=== PATIENT | male | born 1975 | race African-American/Black ===

== ENCOUNTER 2016-03-23 09:03 | Emergency (ER) | payer SELFPAY ==
--- NOTE | 2016-03-23 09:36 | ERRECORD ---
[facility] EMERGENCY RECORD HPI ABDOMINAL PAIN (09:15 WMEI) CHIEF COMPLAINT: Patient presents for evaluation of abdominal pain. HISTORIAN: History provided by patient, states epigastric pain with diarrhea for 2 days resolved now needs note for work. LOCATION MALE: Symptoms are localized, most severe in the epigastrium. TIME COURSE: Gradual onset of symptoms. ASSOCIATED WITH: No associated symptoms. RELIEVED BY: Patient's condition relieved by nothing. EXACERBATED BY: Patient's condition exacerbated by nothing. ROS (09:16 WMEI) CONSTITUTIONAL: Negative constitutional review of systems, Historian denies chills, denies fever. EYES: Historian denies eye pain, denies eye discharge. ENT: Historian denies rhinorrhea, denies sore throat, reports stridor. CARDIOVASCULAR: Historian denies chest pain, no radiation. RESPIRATORY: Historian denies cough, denies shortness of breath. GI: Historian reports abdominal pain, reports diarrhea. GENITOURINARY MALE: Historian denies dysuria, denies urinary frequency. MUSCULOSKELETAL: Historian denies back pain, denies joint stiffness. SKIN: Historian denies skin changes, denies skin lesions. NEUROLOGIC: Historian denies headache, denies mental status changes. PSYCHIATRIC: Historian denies alcohol abuse, denies drug abuse. PAST MEDICAL HISTORY (09:13 ASA) MEDICAL HISTORY: Flu vaccine not up to date, Pneumococcal vaccine not up to date, Past medical history includes history of hypertension, non compliant with meds. MALE SURGICAL HISTORY: Surgical history of orthopedic surgery, left knee. PSYCHIATRIC HISTORY: No previous psychiatric history, Psychiatric history includes. SOCIAL HISTORY: Patient drinks socially, twice a month, Patient denies drug use, Patient has no smoking history, Patient drinks socially, once a month, Patient denies drug use, Patient has no smoking history. KNOWN ALLERGIES No Known Drug Allergies CURRENT MEDICATIONS (09:14 ASA) None &a-1R&a+25V*p+0X*d7481R*c202B*c15G*c2P*p-0X&a-25V&a+1R Name: Neel Juan JR : 1975 M41 MedRec: [id number] AcctNum: [id number] Prepared: Omayra Mar 23, 2016 17:07 by Interface Page 1 of 2 pMD [facility] EMERGENCY RECORD VITAL SIGNS (09:10 [facility]) VITAL SIGNS: BP: 124/105, Pulse: 108, Resp: 16, Temp: 97.3 (Oral), Pain: 0, O2 sat: 98, Time: 03/23/2016 09:10. PHYSICAL EXAM (09:17 WMEI) CONSTITUTIONAL: Vital Signs Reviewed, Patient appears pain free, Patient alert and oriented to person, place and time. HEAD: Head exam included findings of head atraumatic, normocephalic. EYES: Conjunctiva normal, Sclera normal. ENT: Ear exam normal, Nose exam normal, Pharynx exam normal. NECK: Neck exam included findings of normal range of motion, Trachea midline. RESPIRATORY CHEST: Breath sounds clear, Chest exam included findings of chest movement symmetrical. CARDIOVASCULAR: Cardiovascular exam included findings of heart rate regular rate and rhythm, Heart sounds normal. ABDOMEN MALE: Abdominal exam included findings of abdomen nontender, Liver normal, Spleen normal. BACK: no tenderness, no costovertebral angle tenderness. UPPER EXTREMITY: Upper extremity exam included findings of inspection normal, Range of motion normal, Motor strength normal. LOWER EXTREMITY: Lower extremity exam included findings of inspection normal, Range of motion normal, Motor strength normal. NEURO: [place] coma scale 15, Neuro exam findings include patient oriented to person, place and time, Speech normal, Gait normal. SKIN: Skin exam included findings of skin warm, dry, and normal in color. LYMPHATIC: Lymphatic exam normal. PSYCHIATRIC: Psychiatric exam included findings of patient oriented to person place and time, Normal affect, Judgment normal, Insight normal. PROBLEM LIST No recorded problems DIAGNOSIS (09:19 WMEI) FINAL: PRIMARY: Acute Gastroenteritis - presumed infectious. PRESCRIPTION No recorded prescriptions DISPOSITION PATIENT: Disposition Type: Discharge, Disposition: *Discharge Home. (09:19 WMEI) Patient left the department. (09:28 LSMI) Ndiaye: [facility]=DEV Frankel, June LSMI=BLANCA Durand Leah WMEI=DO Ashby William &a-1R&a+25V*p+0X*a2533T*c202B*c15G*c2P*p-0X&a-25V&a+1R Name: Neel Juan JR : 1975 11 MedRec: [id number] AcctNum: [id number] Prepared: Omayra Mar 23, 2016 17:07 by Interface Page 2 of 2 pMD MTDD
--- NOTE | 2016-03-23 09:42 | PICIS ---
[facility] EMERGENCY RECORD TRIAGE (09:11 ASA) TRIAGE NOTES: pt stats that he is no longer having pain. needs a drMendoza noted to return to work. (09:11 ASAH) PATIENT: NAME: Neel Juan JR, AGE: 41, GENDER: male, : [facility] 1975, TIME OF GREET: Omayra Mar 23, 2016 09:03, PREFERRED LANGUAGE: [place], ETHNICITY: Not or , ECODE BILLING MAP: [place], SSN: [id number], Zip Code: [address], KG WEIGHT: 68.04, PHONE: , , , PERSON ID: [id number], PAYMENT: [employer] Self Pay, PCP: none. (09:11 ASAH) COMPLAINT: Abdominal Pain. (09:11 ASAH) ADMISSION: URGENCY: 4 Non Urgent, ADMISSION SOURCE: Home, TRANSPORT: CAR, BED: ER -02. (09:11 ASAH) PAIN: No complaint of pain. (09:13 ASAH) IMMUNIZATIONS: Flu vaccine not up to date, Tetanus not up to date, Pneumococcal vaccine not up to date. (09:13 ASAH) SIRS SCORING: Heart Rate 55-109 (0), Temp range 96.8-101.1 (0), respiratory rate 12-24 (0), Mental status altered: yes (1), Infection or Suspected Infection: No. (09:13 ASAH) TRIAGE SCREENING: Patient denies suicidal ideation, Patient denies presence of domestic violence. (09:13 ASAH) PROVIDERS: TRIAGE NURSE: Pat Frankel RN. (09:11 ASAH) VITAL SIGNS: BP 124/105, Pulse 108, Resp 16, Temp 97.3, (Oral), Pain 0, O2 Sat 98, Time 03/23/2016 09:10. (09:10 ASAH) KNOWN ALLERGIES No Known Drug Allergies CURRENT MEDICATIONS (:14 ASAH) None VITAL SIGNS (09:10 ASA) VITAL SIGNS: BP: 124/105, Pulse: 108, Resp: 16, Temp: 97.3 (Oral), Pain: 0, O2 sat: 98, Time: 03/23/2016 09:10. NURSING ASSESSMENT: ABDOMEN (09:14 [facility]) CONSTITUTIONAL: Patient arrives ambulatory, Gait steady, History obtained from patient, Patient appears comfortable, Patient cooperative, Patient alert, Oriented to person, place and time, Skin warm, Skin dry, Skin normal in color, Patient complains of absominal pain. ABDOMEN: Abdomen assessment findings include abdomen symmetrical, Abdomen soft, non-tender. SAFETY: Side rails up, Cart/Stretcher in lowest position, Call light within reach, Hospital ID band on. NURSING PROCEDURE: DISCHARGE NOTE (09:25 LSMI) DISCHARGE: Patient discharged to home, ambulating without assistance, driving self, accompanied by other family member, Summary &a-1R&a+25V*p+0X*d0999M*c202B*c15G*c2P*p-0X&a-25V&a+1R Name: Neel Juan JR : 1975 M41 MedRec: [id number] AcctNum: [id number] Prepared: Omayra Mar 23, 2016 17:13 by Interface Page 1 of [address] [facility] EMERGENCY RECORD of Care printed/ provided, Transition record given to patient, Discharge instructions given to patient, Above person(s) verbalized understanding of discharge instructions and follow-up care, Patient discharged by, june rn, Notes: pt dc'd with instruction and note for work in no apparent distress. condition stable on dc. HPI ABDOMINAL PAIN (09:15 WMEI) CHIEF COMPLAINT: Patient presents for evaluation of abdominal pain. HISTORIAN: History provided by patient, states epigastric pain with diarrhea for 2 days resolved now needs note for work. LOCATION MALE: Symptoms are localized, most severe in the epigastrium. TIME COURSE: Gradual onset of symptoms. ASSOCIATED WITH: No associated symptoms. RELIEVED BY: Patient's condition relieved by nothing. EXACERBATED BY: Patient's condition exacerbated by nothing. ROS (09:16 WMEI) CONSTITUTIONAL: Negative constitutional review of systems, Historian denies chills, denies fever. EYES: Historian denies eye pain, denies eye discharge. ENT: Historian denies rhinorrhea, denies sore throat, reports stridor. CARDIOVASCULAR: Historian denies chest pain, no radiation. RESPIRATORY: Historian denies cough, denies shortness of breath. GI: Historian reports abdominal pain, reports diarrhea. GENITOURINARY MALE: Historian denies dysuria, denies urinary frequency. MUSCULOSKELETAL: Historian denies back pain, denies joint stiffness. SKIN: Historian denies skin changes, denies skin lesions. NEUROLOGIC: Historian denies headache, denies mental status changes. PSYCHIATRIC: Historian denies alcohol abuse, denies drug abuse. PAST MEDICAL HISTORY (09:13 [facility]) MEDICAL HISTORY: Flu vaccine not up to date, Pneumococcal vaccine not up to date, Past medical history includes history of hypertension, non compliant with meds. MALE SURGICAL HISTORY: Surgical history of orthopedic surgery, left knee. PSYCHIATRIC HISTORY: No previous psychiatric history, Psychiatric history includes. SOCIAL HISTORY: Patient drinks socially, twice a month, Patient denies drug use, Patient has no smoking history, Patient drinks socially, once a month, Patient denies drug use, Patient has no smoking history. &a-1R&a+25V*p+0X*f6944U*c202B*c15G*c2P*p-0X&a-25V&a+1R Name: Neel Juan JR : 1975 M41 MedRec: [id number] AcctNum: [id number] Prepared: [facility] Mar 23, 2016 17:13 by Interface Page 2 of [address] [facility] EMERGENCY RECORD PHYSICAL EXAM (09:17 [facility]) CONSTITUTIONAL: Vital Signs Reviewed, Patient appears pain free, Patient alert and oriented to person, place and time. HEAD: Head exam included findings of head atraumatic, normocephalic. EYES: Conjunctiva normal, Sclera normal. ENT: Ear exam normal, Nose exam normal, Pharynx exam normal. NECK: Neck exam included findings of normal range of motion, Trachea midline. RESPIRATORY CHEST: Breath sounds clear, Chest exam included findings of chest movement symmetrical. CARDIOVASCULAR: Cardiovascular exam included findings of heart rate regular rate and rhythm, Heart sounds normal. ABDOMEN MALE: Abdominal exam included findings of abdomen nontender, Liver normal, Spleen normal. BACK: no tenderness, no costovertebral angle tenderness. UPPER EXTREMITY: Upper extremity exam included findings of inspection normal, Range of motion normal, Motor strength normal. LOWER EXTREMITY: Lower extremity exam included findings of inspection normal, Range of motion normal, Motor strength normal. NEURO: [place] coma scale 15, Neuro exam findings include patient oriented to person, place and time, Speech normal, Gait normal. SKIN: Skin exam included findings of skin warm, dry, and normal in color. LYMPHATIC: Lymphatic exam normal. PSYCHIATRIC: Psychiatric exam included findings of patient oriented to person place and time, Normal affect, Judgment normal, Insight normal. EVENTS TRANSFER: Triage to Emergency Emergency Room -02. (09:11 ASA) Removed from Emergency Emergency Room -02. (09:28 LSMI) PROBLEM LIST No recorded problems DIAGNOSIS (09:19 WMEI) FINAL: PRIMARY: Acute Gastroenteritis - presumed infectious. DISPOSITION PATIENT: Disposition Type: Discharge, Disposition: *Discharge Home. (09:19 WMEI) Patient left the department. (09:28 LSMI) INSTRUCTION (09:23 LSMI) DISCHARGE: FOOD POISONING (8Y-ADULT). SPECIAL: Follow-up with your primary physician as needed. &a-1R&a+25V*p+0X*a6798Q*c202B*c15G*c2P*p-0X&a-25V&a+1R Name: Neel Juan JR : 1975 11 MedRec: [id number] AcctNum: [id number] Prepared: SunMar 23, 2016 17:13 by Interface Page 3 of [address] [facility] EMERGENCY RECORD PRESCRIPTION No recorded prescriptions IMAGING (09:27 LSMI) *DISCHARGE INSTRUCTIONS RECEIPT: Image captured from scanner. *SUPPLY CHARGE SHEET: Image captured from scanner. ADMIN DIGITAL SIGNATURE: BLANCA Durand Leah. (09:28 LSMI) DO Ashby William. (17:05 WMEI) Ndiaye: [facility]=DEV Frankel, June LSMI=BLANCA Durand Leah WMEI=DO Ashby William &a-1R&a+25V*p+0X*l2273E*c202B*c15G*c2P*p-0X&a-25V&a+1R Name: Neel Juan JR : 1975 11 MedRec: [id number] AcctNum: [id number] Prepared: Omayra Mar 23, 2016 17:13 by Interface Page 4 of 4 pMD [facility]
== END 2016-03-23 09:25 | disposition home or self-care (01) ==
LOC: BURERS 09:03
DX: K52.9 Noninfective gastroenteritis and colitis, unspecified (principal); I10 Essential (primary) hypertension
CPT/HCPCS: 99283

== ENCOUNTER 2016-07-04 11:38 | Emergency (ER) | payer SELFPAY | END 2016-07-04 11:56 | disposition home or self-care (01) | LOC: BURERS 11:38 | DX: K64.8 Other hemorrhoids (principal); I10 Essential (primary) hypertension | CPT/HCPCS: 99283 ==

== ENCOUNTER 2017-06-21 18:10 | Emergency (ER) | payer SELFPAY ==
[2017-06-21 18:42] LABS: Prothrombin Time 13.1 SEC (12.0-14.7); Red Blood Cell (RBC) Count 6.62 mill/uL (4.70-6.10)
[2017-06-21 18:43] LABS: %Monocytes 4.3 % (0.0-10.0); %Neutrophils 82.2 % (42.0-75.0); Mean Corpuscular HGB CONC 32.6 g/dL (32.0-36.0); Mean Corpuscular Hemoglobin 27.2 pg (27.0-31.0); Mean Corpuscular Volume 83.5 fL (80.0-94.0); Mean Platelet Volume 6.6 fL (7.4-10.4); PTT 24.7 SEC (22.9-36.1); Platelet Count 271 thou/uL (130-400); RBC Distribution Width 12.1 % (11.5-14.5)
[2017-06-21 18:44] LABS: #Basophils 0.1 thou/uL (0.0-0.2); #Eosinphils 0.1 thou/uL (0.0-0.7); #Monocytes 0.6 thou/uL (0.11-0.59); #Neutrophils 10.7 thou/uL (1.40-6.50); %Basophils 0.7 % (0.0-1.0); %Eosinophils 0.8 % (0.0-10.0)
[2017-06-21 18:46] LABS: Manual Diff?? YES
[2017-06-21 18:47] LABS: Critical Call w/ Read Back NOT CALLED
[2017-06-21 18:51] LABS: #Lymphocytes 1.6 thou/uL (1.20-3.40)
[2017-06-21 18:52] LABS: ALT (SGPT) 24 U/L (8-55); AST (SGOT) 20 U/L (5-34); Albumin 3.7 g/dL (3.5-5.0); Alkaline Phosphatase 48 U/L (40-150); Anion Gap 14 mmol/L (10-20); BUN (Urea Nitrogen) 26 mg/dL (8.9-20.6); Bilirubin, Total 2.8 mg/dL (0.2-1.2); Calc. Creatinine Clearance 0 mL/min (70-130); Calcium 8.5 mg/dL (7.8-10.44); Carbon Dioxide 24 mmol/L (22-29); Chloride 101 mmol/L (98-107); Estimated GFR-MDRD 65; Globulin 1.9 g/dL (2.4-3.5); Glucose 160 mg/dL (70-105); Lipase 52 U/L (8-78); Potassium 4.1 mmol/L (3.5-5.1); Protein, Total 5.6 g/dL (6.0-8.3); Sodium 135 mmol/L (136-145)
[2017-06-21 18:53] LABS: CKMB 1.7 ng/mL (0-6.6); Troponin I Less than 0.010 ng/mL (< 0.028)
--- NOTE | 2017-06-21 19:54 | RAD ---
PORTABLE CHEST 06/21/17 An AP portable film at 1822 is compared with a 03/04/16 study. The heart is normal in size and the lungs are clear. No infiltrate or effusion was seen. The mediasti num appears normal. IMPRESSION: No acute thoracic findings. POS: HOME
== END 2017-06-21 19:40 | disposition home or self-care (01) ==
LOC: BURERS 18:10
DX: A08.4 Viral intestinal infection, unspecified (principal); R55 Syncope and collapse
CPT/HCPCS: 71045; 80053; 82553; 83690; 84484; 85025; 85610; 85730; 93005; 94760; 96374

== ENCOUNTER 2017-06-22 16:21 | Emergency (ER) | payer BC, SELFPAY ==
[2017-06-22] MEDS ORDERED: Ondansetron ODT 4 MG TAB ONE (17:08)
[2017-06-22 17:31] LABS: Bilirubin Negative (Negative); Blood, Urine Negative (Negative); Clarity Clear (Clear); Glucose, Urine (Dipstick) Negative (Negative); Leukocyte Negative (Negative); Nitrite Negative (Negative); Protein, Urine (Dipstick) Negative (Neg-Trace); pH, Urine 6.5 (5.0-9.0)
[2017-06-22 17:32] LABS: Specific Gravity, Urine 1.008 (1.005-1.030)
[2017-06-22 17:37] LABS: #Basophils 0.1 thou/uL (0.0-0.2); #Eosinphils 0.2 thou/uL (0.0-0.7); #Lymphocytes 1.5 thou/uL (1.20-3.40); #Monocytes 0.6 thou/uL (0.11-0.59); #Neutrophils 6.4 thou/uL (1.40-6.50); %Basophils 0.7 % (0.0-1.0); %Eosinophils 1.8 % (0.0-10.0); %Lymphocytes 16.9 % (21.0-51.0); %Monocytes 6.5 % (0.0-10.0); %Neutrophils 74.1 % (42.0-75.0); Hemoglobin 14.8 g/dL (14.0-18.0); Mean Corpuscular HGB CONC 31.9 g/dL (32.0-36.0); Mean Corpuscular Hemoglobin 27.2 pg (27.0-31.0); Mean Corpuscular Volume 85.4 fl (80.0-94.0); Mean Platelet Volume 6.1 fL (7.4-10.4); Platelet Count 224 thou/uL (130-400); RBC Distribution Width 12.5 % (11.5-14.5); Red Blood Cell (RBC) Count 5.45 mill/uL (4.70-6.10); White Blood Cell (WBC) Count 8.6 thou/uL (4.8-10.8)
[2017-06-22 17:41] LABS: ALT (SGPT) 22 U/L (8-55); AST (SGOT) 20 U/L (5-34); Albumin 3.4 g/dL (3.5-5.0); Alkaline Phosphatase 43 U/L (40-150); Anion Gap 10 mmol/L (10-20); BUN (Urea Nitrogen) 16 mg/dL (8.9-20.6); Bilirubin, Total 2.3 mg/dL (0.2-1.2); Calc. Creatinine Clearance 0 mL/min (70-130); Calcium 8.4 mg/dL (7.8-10.44); Carbon Dioxide 28 mmol/L (22-29); Chloride 105 mmol/L (98-107); Estimated GFR-MDRD 77; Globulin 1.8 g/dL (2.4-3.5); Glucose 101 mg/dL (70-105); Potassium 4.8 mmol/L (3.5-5.1); Protein, Total 5.2 g/dL (6.0-8.3); Sodium 138 mmol/L (136-145)
== END 2017-06-22 18:49 | disposition home or self-care (01) ==
LOC: BURERS 16:21
DX: R53.1 Weakness (principal)
CPT/HCPCS: 36415; 80053; 81003; 85025; 99284; Q0162

== ENCOUNTER 2017-08-04 17:08 | Emergency (ER) | payer BC, SELFPAY | END 2017-08-04 17:20 | disposition home or self-care (01) | LOC: BURERS 17:08 | DX: R51 Headache (principal) | CPT/HCPCS: 99283 ==

== ENCOUNTER 2018-09-15 16:17 | Emergency (ER) | payer SELFPAY ==
[2018-09-15 16:59] LABS: #Basophils 0.1 thou/uL (0.0-0.2); #Eosinphils 0.1 thou/uL (0.0-0.7); #Lymphocytes 1.2 thou/uL (1.20-3.40); #Monocytes 0.4 thou/uL (0.11-0.59); #Neutrophils 6.8 thou/uL (1.40-6.50); %Basophils 0.8 % (0.0-1.0); %Eosinophils 0.7 % (0.0-10.0); %Lymphocytes 13.8 % (21.0-51.0); %Neutrophils 79.7 % (42.0-75.0); Hemoglobin 14.3 g/dL (14.0-18.0); Mean Corpuscular HGB CONC 31.1 g/dL (32.0-36.0); Mean Corpuscular Hemoglobin 27.7 pg (27.0-31.0); Mean Platelet Volume 6.3 fL (7.4-10.4); Platelet Count 246 thou/uL (130-400); RBC Distribution Width 12.8 % (11.5-14.5); Red Blood Cell (RBC) Count 5.15 mill/uL (4.70-6.10); White Blood Cell (WBC) Count 8.6 thou/uL (4.8-10.8)
== END 2018-09-15 17:54 | disposition home or self-care (01) ==
LOC: BURERS 16:17
DX: T67.5XXA Heat exhaustion, unspecified, initial encounter (principal)
CPT/HCPCS: 82550; 85025; 99284

== ENCOUNTER 2019-02-04 18:11 | Emergency (ER) | payer SELFPAY ==
[2019-02-04] MEDS ORDERED: Benzonatate 100 MG CAP ONE (19:28)
--- NOTE | 2019-02-04 22:31 | RAD ---
CHEST TWO VIEWS: 02/04/19 Comparison is made with the 06/21/17 study. The lungs are slightly hyperexpanded but clear. No infiltrate or effusion was seen to suggest pneumon ia. The heart is normal in size and the mediastinum appears normal. The bony structures were unremark able. IMPRESSION: Mildly hyperexpanded lungs but no acute findings otherwise. POS: HOME
== END 2019-02-04 19:43 | disposition home or self-care (01) ==
LOC: BURERS 18:11
DX: J06.9 Acute upper respiratory infection, unspecified (principal); I25.2 Old myocardial infarction; F41.9 Anxiety disorder, unspecified; I10 Essential (primary) hypertension
CPT/HCPCS: 71046; J7620

== ENCOUNTER 2019-04-14 11:53 | Emergency (ER) | payer SELFPAY | END 2019-04-14 12:14 | disposition home or self-care (01) | LOC: BURERS 11:53 | DX: J20.8 Acute bronchitis due to other specified organisms (principal); B97.89 Other viral agents as the cause of diseases classified elsewhere; I25.2 Old myocardial infarction; I10 Essential (primary) hypertension; F41.9 Anxiety disorder, unspecified | CPT/HCPCS: 99284 ==

== ENCOUNTER 2020-12-04 16:42 | Emergency (ER) | payer SELFPAY | END 2020-12-04 17:14 | disposition home or self-care (01) | LOC: BURERS 16:42 | DX: R21 Rash and other nonspecific skin eruption (principal); F17.210 Nicotine dependence, cigarettes, uncomplicated | CPT/HCPCS: 99281 ==

== ENCOUNTER 2021-02-04 16:12 | Emergency (ER) | payer SELFPAY ==
[2021-02-04] MEDS ORDERED: HYDROcodone/Acetaminophen 10/325 mg Tablet ONE (16:41)
[2021-02-04] MEDS ORDERED: Lidocaine 1% w/Epinephrine 1:100K 20 ML VIAL ONE (16:41)
[2021-02-04] MEDS ORDERED: Clindamycin 150 MG CAP ONE (16:41)
== END 2021-02-04 17:06 | disposition home or self-care (01) ==
LOC: BURERS 16:12
DX: L02.31 Cutaneous abscess of buttock (principal); I10 Essential (primary) hypertension; F17.210 Nicotine dependence, cigarettes, uncomplicated
CPT/HCPCS: 10060

== ENCOUNTER 2021-02-27 18:08 | Emergency (ER) | payer SELFPAY ==
[2021-02-27] MEDS ORDERED: Aspirin Chewable 81 MG TAB ONE (18:40)
[2021-02-27] MEDS ORDERED: Lorazepam 2 MG/ML VIAL ONE (18:40)
[2021-02-27 19:03] LABS: #Basophils 0.1 thou/uL (0.0-0.2); #Eosinphils 0.2 thou/uL (0.0-0.7); #Lymphocytes 1.5 thou/uL (1.20-3.40); #Monocytes 0.5 thou/uL (0.11-0.59); #Neutrophils 7.2 thou/uL (1.40-6.50); %Basophils 0.7 % (0.0-1.0); %Eosinophils 1.8 % (0.0-10.0); %Lymphocytes 15.9 % (21.0-51.0); %Monocytes 5.3 % (0.0-10.0); %Neutrophils 76.3 % (42.0-75.0); Hemoglobin 14.2 g/dL (14.0-18.0); Mean Corpuscular HGB CONC 33.4 g/dL (32.0-36.0); Mean Corpuscular Hemoglobin 28.3 pg (27.0-31.0); Mean Corpuscular Volume 84.7 fL (78.0-98.0); Mean Platelet Volume 6.9 fL (7.4-10.4); Platelet Count 362 thou/uL (130-400); RBC Distribution Width 12.4 % (11.5-14.5); Red Blood Cell (RBC) Count 5.03 mill/uL (4.70-6.10); White Blood Cell (WBC) Count 9.4 thou/uL (4.8-10.8)
[2021-02-27 19:04] LABS: Amphetamine Not Detected (NotDetected); Barbiturates Screen Not Detected (NotDetected); Benzodiazepine Screen Not Detected (NotDetected); Cocaine Metabolite Screen Not Detected (NotDetected); Medtox Control Line Valid? VALID (VALID); Methadone Not Detected (NotDetected); Methamphetamine Not Detected (NotDetected); Opiate Screen Detected (NotDetected); Oxycodone Screen Not Detected (NotDetected); Phencyclidine (PCP) Not Detected (NotDetected); THC/Cannabinoid Screen Not Detected (NotDetected); Tricyclic Screen Not Detected (NotDetected)
[2021-02-27 19:05] LABS: ALT (SGPT) 25 U/L (8-55); AST (SGOT) 20 U/L (5-34); Albumin 4.1 g/dL (3.5-5.0); Alkaline Phosphatase 55 U/L (40-110); Anion Gap 15 mmol/L (10-20); BUN (Urea Nitrogen) 10 mg/dL (8.9-20.6); Bilirubin, Total 0.9 mg/dL (0.2-1.2); Calc. Creatinine Clearance 0 mL/min (70-130); Calcium 9.7 mg/dL (7.8-10.44); Carbon Dioxide 26 mmol/L (22-29); Chloride 105 mmol/L (98-107); Globulin 2.9 g/dL (2.4-3.5); Glucose 94 mg/dL (70-105); Potassium 3.5 mmol/L (3.5-5.1); Sodium 142 mmol/L (136-145)
== END 2021-02-27 19:38 | disposition home or self-care (01) ==
LOC: BURERS 18:08
DX: F41.9 Anxiety disorder, unspecified (principal); F17.210 Nicotine dependence, cigarettes, uncomplicated; I10 Essential (primary) hypertension
CPT/HCPCS: 71045; 80053; 80306; 83880; 84484; 85025; 93005; 94760; 96374; J2060